=== PATIENT | female | born 1945 | race Caucasian/White ===

== ENCOUNTER → 2017-05-10 | Outpatient (CLI) | payer MEDICARE ==
[~2017-05-10] MED LIST: ASPI-621 PO; DRON400T PO; ESTR30CR VG; EZET10TA18 PO; ONDA4TAB7; OXYC-293; RANI150T8; WARF10TA PO; WARF5TAB
== END | disposition home or self-care (01) ==
LOC: CFH 14:26
PROVIDERS: ATTEND Family Medicine
DX: Z12.31 Encounter for screening mammogram for malignant neoplasm of breast (principal)
CPT/HCPCS: 77063; G0202